=== PATIENT | female | born 1940 | race Caucasian/White ===

== ENCOUNTER 2016-09-22 08:39 | Outpatient (CLI) | payer OTHER | END 2016-09-22 23:00 | LOC: LAB SRH 08:39 | DX: E11.65 Type 2 diabetes mellitus with hyperglycemia (principal); E78.00 Pure hypercholesterolemia, unspecified; I10 Essential (primary) hypertension | CPT/HCPCS: 90004; 90074; 90100; 90469; 91286; 91610; 92690 ==

== ENCOUNTER 2016-12-13 08:37 | Outpatient (CLI) | payer OTHER | END 2016-12-13 23:00 | LOC: LAB SRH 08:37 | DX: E11.65 Type 2 diabetes mellitus with hyperglycemia (principal); E78.00 Pure hypercholesterolemia, unspecified; E03.9 Hypothyroidism, unspecified | CPT/HCPCS: 90004; 90074; 90100; 90469; 90648; 91286; 92690; 93140 ==

== ENCOUNTER 2017-02-04 09:14 | Outpatient (CLI) | payer OTHER | END 2017-02-04 23:00 | disposition home or self-care (01) | LOC: LAB SRH 09:14 | DX: Z79.01 Long term (current) use of anticoagulants (principal); I48.0 Paroxysmal atrial fibrillation | CPT/HCPCS: 90074; 94060 ==